=== PATIENT | male | born 1975 | race Hispanic/Latino ===

== ENCOUNTER 2022-09-24 10:29 | Emergency (ER) | payer BC ==
[~2022-09-24] VITALS: Ht 175.3 cm; Wt 99.8 kg
[~2022-09-24 10:29] MED LIST: ASPI-1005 PO; ATOR40TA69 PO; FAMO20TA8 PO; FURO20TA4 PO; METO25 PO
[2022-09-24 10:35] VITALS: BP 157/102
[2022-09-24 10:59] LABS: BASOPHILS % (AUTO) 0.3 % (0.0-5.0); EOSINOPHILS % (AUTO) 0.5 % (0.0-8.0); HEMATOCRIT 42.6 % (42-54); LYMPHOCYTES % (AUTO) 20.2 % (21.0-51.0); MEAN CORPUSCULAR HEMOGLOBIN 31.2 pg (27.0-33.0); MEAN CORPUSCULAR HGB CONC 33.8 g/dL (32.0-36.0); MEAN CORPUSCULAR VOLUME 92.2 fL (79-99); MONOCYTES % (AUTO) 7.4 % (3.0-13.0); NEUTROPHILS % (AUTO) 71.3 % (40.0-77.0); PLATELET COUNT (AUTO) 237 K/uL (130-400); RED BLOOD CELL COUNT(AUTO) 4.62 MIL/uL (4.50-6.20); RED CELL DISTRIBUTION WIDTH 12.6 % (11.0-15.5); WHITE BLOOD COUNT (AUTO) 6.6 K/uL (4.8-10.8)
[2022-09-24] MEDS ORDERED: FAMOTIDINE 20MG VIAL IV ONE (11:00)
[2022-09-24] MEDS ORDERED: PANTOPRAZOLE 40 MG/VIAL IVP ONE (11:00)
[2022-09-24] MEDS ORDERED: 0.9% NACL 500ML IV.SOLN 500 ML IV ONE (11:00)
[2022-09-24 11:15] LABS: ALBUMIN 4.1 g/dL (3.5-5.0); POTASSIUM 3.9 mmol/L (3.5-5.1); TOTAL PROTEIN, SERUM 8.2 g/dL (6.0-8.3)
[2022-09-24 11:19] LABS: APPEARANCE,URINE CLEAR (CLEAR); BILIRUBIN,URINE NEGATIVE (NEGATIVE); COLOR,URINE YELLOW (YELLOW); GLUCOSE, URINE (UA) NEGATIVE (NEGATIVE); KETONES,URINE NEGATIVE (NEGATIVE); LEUKOCYTE ESTERASE ,URINE NEGATIVE Leu/uL (NEGATIVE); NITRATE,URINE NEGATIVE (NEGATIVE); OCCULT BLOOD,URINE NEGATIVE (NEGATIVE); PH,URINE 5.5 (5.0-8.0); PROTEIN,URINE 10 mg/dL (NEGATIVE); UROBILINOGEN,URINE 0.2 mg/dL (0.2-1.0)
[2022-09-24 11:28] LABS: MUCUS,URINE FEW LPF (None Seen); RBC,URINE 0-1 /HPF (0-1); SQUAMOUS EPITHELIAL CELL,UR RARE /HPF (0-2); WBC,URINE 0-1 /HPF (0-1)
[2022-09-24] MEDS ORDERED: SUCR1TAB28 PO (11:51)
[2022-09-24] MEDS ORDERED: PANT40TA55 PO (11:51)
== END 2022-09-24 12:43 | disposition home or self-care (01) ==
LOC: EDH 10:29
DX: R10.13 Epigastric pain (principal); E78.00 Pure hypercholesterolemia, unspecified; Z79.82 Long term (current) use of aspirin; Z79.899 Other long term (current) drug therapy; Z98.890 Other specified postprocedural states
CPT/HCPCS: 99284; 96374; 71045; 96375; 84484; 80053; 83880; 83690; 85025; 81001; 36415; 93005; J7040; J3490; C9113

== ENCOUNTER 2023-04-02 06:34 | Emergency (ER) | payer BC ==
[~2023-04-02] VITALS: Ht 175.3 cm; Wt 102.1 kg
[~2023-04-02 06:34] MED LIST changes: +PANT40TA55 PO; +SUCR1TAB28 PO
[2023-04-02 07:08] LABS: BASOPHILS # (AUTO) 0.01 K/uL (0.00-0.20); BASOPHILS % (AUTO) 0.2 % (0.0-5.0); EOSINOPHILS # (AUTO) 0.08 K/uL (0.00-0.70); EOSINOPHILS % (AUTO) 1.3 % (0.0-8.0); HEMATOCRIT 42.8 % (42-54); IMMATURE GRANULOCYTE ABSOLUTE 0.02 K/uL (0-1); LYMPHOCYTES # (AUTO) 1.8 K/uL (1.0-4.8); LYMPHOCYTES % (AUTO) 27.6 % (21.0-51.0); MEAN CORPUSCULAR HEMOGLOBIN 31.8 pg (27.0-33.0); MEAN CORPUSCULAR HGB CONC 34.6 g/dL (32.0-36.0); MONOCYTES # (AUTO) 0.5 K/uL (0.1-1.0); MONOCYTES % (AUTO) 7.1 % (3.0-13.0); NEUTROPHILS % (AUTO) 63.5 % (40.0-77.0); PLATELET COUNT (AUTO) 216 K/uL (130-400); RED BLOOD CELL COUNT(AUTO) 4.65 MIL/uL (4.50-6.20); RED CELL DISTRIBUTION WIDTH 12.4 % (11.0-15.5); WHITE BLOOD COUNT (AUTO) 6.3 K/uL (4.8-10.8)
[2023-04-02 07:27] LABS: ALBUMIN 4.3 g/dL (3.5-5.0); BILIRUBIN,TOTAL 0.7 mg/dL (0.2-1.0); CREATININE 0.9 mg/dL (0.5-1.5); POTASSIUM 3.9 mmol/L (3.5-5.1); TOTAL PROTEIN, SERUM 8.5 g/dL (6.0-8.3)
[2023-04-02 07:41] LABS: APPEARANCE,URINE CLEAR (CLEAR); BILIRUBIN,URINE NEGATIVE (NEGATIVE); COLOR,URINE LIGHT-YELLOW (YELLOW); GLUCOSE, URINE (UA) NEGATIVE (NEGATIVE); KETONES,URINE NEGATIVE (NEGATIVE); LEUKOCYTE ESTERASE ,URINE NEGATIVE Leu/uL (NEGATIVE); NITRATE,URINE NEGATIVE (NEGATIVE); OCCULT BLOOD,URINE NEGATIVE (NEGATIVE); PH,URINE 6.5 (5.0-8.0); PROTEIN,URINE NEGATIVE (NEGATIVE); UROBILINOGEN,URINE 0.2 mg/dL (0.2-1.0)
[2023-04-02 07:44] LABS: SARS-CoV-2, RNA, NAAT NEGATIVE SARS CoV-2 (NEGATIVE)
[2023-04-02 07:49] LABS: INFLUENZA TYPE A Negative For Type A (NEGATIVE); INFLUENZA TYPE B Negative For Type B (NEGATIVE)
[2023-04-02 07:54] LABS: ADD UA MICROSCOPIC NO
[2023-04-02] MEDS ORDERED: IOHEXOL 350 MG/ML 100ML INFUS..BTL IV ONE (09:35)
[2023-04-02 13:34] VITALS: BP 128/85; PULSE 80; RESP 18; O2SAT 98
[2023-04-02] MEDS ORDERED: FLUT16H NASAL (13:52)
[2023-04-02] MEDS ORDERED: CETI10TA57 PO (13:52)
== END 2023-04-02 14:13 | disposition home or self-care (01) ==
LOC: EDH 06:34
DX: R42 Dizziness and giddiness (principal); J32.9 Chronic sinusitis, unspecified; E78.00 Pure hypercholesterolemia, unspecified; I10 Essential (primary) hypertension; Z79.82 Long term (current) use of aspirin; Z79.899 Other long term (current) drug therapy; Z95.1 Presence of aortocoronary bypass graft; Z20.822 Contact with and (suspected) exposure to COVID-19
CPT/HCPCS: 99285; 70450; 71045; 87635; 83735; 80053; 85025; 87804 ×2; 81003; 36415; 70496; 70498; 93005; C9803; Q9967

== ENCOUNTER 2023-05-21 07:28 | Emergency (ER) | payer BC ==
[~2023-05-21] VITALS: Ht 175.3 cm; Wt 104.3 kg
[~2023-05-21 07:28] MED LIST changes: +CETI10TA57 PO; +FLUT16H NASAL
[2023-05-21 08:48] LABS: HEMATOCRIT 44.4 % (42-54); MEAN CORPUSCULAR HEMOGLOBIN 31.6 pg (27.0-33.0); MEAN CORPUSCULAR HGB CONC 34.7 g/dL (32.0-36.0); RED BLOOD CELL COUNT(AUTO) 4.88 MIL/uL (4.50-6.20); RED CELL DISTRIBUTION WIDTH 11.9 % (11.0-15.5)
[2023-05-21 09:13] LABS: CREATININE 0.9 mg/dL (0.5-1.5); POTASSIUM 4.3 mmol/L (3.5-5.1)
[2023-05-21 09:17] LABS: ALBUMIN 4.4 g/dL (3.5-5.0); BILIRUBIN,TOTAL 0.6 mg/dL (0.2-1.0); TOTAL PROTEIN, SERUM 8.5 g/dL (6.0-8.3)
[2023-05-21] MEDS: FAMOTIDINE 20MG TAB PO ONE (09:48)
[2023-05-21] MEDS: LIDOCAINE HCL 2% VISCOUS 15 ML UDCUP PO ONE (09:48)
[2023-05-21] MEDS: MAG/ALUM/SIMETH 30 ML UDCUP PO ONE (09:49)
[2023-05-21] MEDS ORDERED: OMEP40CA21 PO (10:32)
[2023-05-21] MEDS ORDERED: SUCR1TAB28 PO (10:32)
[2023-05-21 10:45] VITALS: BP 138/89; PULSE 80; RESP 16; O2SAT 97
== END 2023-05-21 10:51 | disposition home or self-care (01) ==
LOC: EDH 07:28
DX: K29.00 Acute gastritis without bleeding (principal)
CPT/HCPCS: 36415; 80053; 83690; 84484; 85027; 93005